=== PATIENT | female | born 1980 | race Caucasian/White ===

== ENCOUNTER 2025-05-31 00:15 | Emergency (ER) | payer OTHER ==
[~2025-05-31] VITALS: Ht 157.5 cm; Wt 69.5 kg
[2025-05-31 01:12] VITALS: PULSE 77; RESP 24; O2SAT 97
[2025-05-31] MEDS: IPRATROPIUM BROMIDE 0.5 MG/2.5 ML NEB SOLUTION NEB ONE (01:12)
[2025-05-31] MEDS: ALBUTEROL SULFATE 2.5 MG/0.5 ML NEB SOLUTION NEB ONE (01:12)
[2025-05-31 01:26] VITALS: TEMP 98.2
[2025-05-31 01:27] VITALS: PULSE 78; RESP 24; O2SAT 98
[2025-05-31 01:36] LABS: PLATELET COUNT (AUTO) 280 K/uL (150-450); RED BLOOD CELL COUNT(AUTO) 4.09 MIL/uL (4.00-5.20); RED CELL DISTRIBUTION WIDTH 15.9 % (11.5-14.5); WHITE BLOOD COUNT (AUTO) 10.0 K/uL (4.5-11.0)
[2025-05-31 01:38] LABS: COVID AG,FIA SOURCE NASAL SWAB
[2025-05-31 01:43] LABS: CREATININE 0.68 mg/dL (0.60-1.30); GLUCOSE,RANDOM 107 mg/dL (70-110); SODIUM SERUM 138 mmol/L (136-145); UREA NITROGEN, BLOOD 11 mg/dL (7-18)
[2025-05-31 01:44] LABS: CALCIUM, TOTAL 9.4 mg/dL (8.8-10.5); GLOMERULAR FILTR. RATE CALC > 60 mL/min (>60)
[2025-05-31 01:55] LABS: INFLUENZA TYPE A NEGATIVE FOR TYPE A (NEGATIVE); INFLUENZA TYPE B NEGATIVE FOR TYPE B (NEGATIVE); SARS-COV2 (COVID) ANTIGEN,FIA Negative (Negative)
[2025-05-31 01:57] LABS: ASPARTATE AMINOTRANSFERASE 72 U/L (15-37); HCG,QUANTITATIVE < 1 mIU/mL (0-6); TOTAL PROTEIN, SERUM 7.7 g/dL (6.4-8.2)
[2025-05-31 02:06] LABS: LACTIC ACID 1.6 mmol/L (0.4-2.0)
[2025-05-31 02:07] LABS: TROPONIN I-HIGH SENSITIVITY Less Than 4 ng/L (<51)
[2025-05-31] MEDS ORDERED: SODIUM CHLORIDE 0.9% 100 ML ONE (02:17)
[2025-05-31] MEDS ORDERED: IOHEXOL 350 MG/ML 100 ML VIAL ONE (02:17)
[2025-05-31 02:18] LABS: APPEARANCE,URINE CLEAR (CLEAR); GLUCOSE, URINE (UA) NEGATIVE (NEGATIVE); LEUKOCYTE ESTERASE ,URINE NEGATIVE (NEGATIVE); NITRATE,URINE NEGATIVE (NEGATIVE); OCCULT BLOOD,URINE SMALL (NEGATIVE); SPECIFIC GRAVITIY, URINE 1.015 (1.003-1.030)
[2025-05-31 02:34] LABS: SQUAMOUS EPITHELIAL CELL,UR Few /LPF (None Seen)
[2025-05-31 02:53] VITALS: BP 135/77; PULSE 90; RESP 22; O2SAT 94
[2025-05-31] MEDS ORDERED: AZIT-167 PO (03:14)
[2025-05-31] MEDS ORDERED: DEXA4 PO (03:14)
[2025-05-31] MEDS ORDERED: ALBU18HF12 IH (03:14)
[2025-05-31] MEDS: 0.9% SODIUM CHLORIDE 10 ML SYRINGE IVP PRN (03:28)
[2025-05-31] MEDS: CefTRIAXone 1 GM/DEXTROSE 50 ML IV ONE (03:28)
[2025-05-31] MEDS: DEXAMETHASONE SOD PHOS 4 MG/ML 5 ML VIAL IVP ONE (03:28)
== END 2025-05-31 03:47 | disposition home or self-care (01) ==
LOC: EMS 00:52
DX: J98.4 Other disorders of lung (principal); Z20.822 Contact with and (suspected) exposure to COVID-19
CPT/HCPCS: 99285; 96365; 71275; 71045; 96375; 87426; 80048; 80076; 81001; 83605; 83880; 84484; 84702; 85025; 85379; 85610; 85730; 87040; 87804; 36415; 94760; 94640; 93005; 84145; Q9967; J0696; J1100; J1200; J7050; J7613